=== PATIENT | female | born 1970 | race Two or more races ===

== ENCOUNTER 2020-05-14 13:16 | Inpatient (IN) | payer SELFPAY ==
[~2020-05-14] VITALS: Ht 144.8 cm; Wt 61.7 kg
[2020-05-14] MEDS ORDERED: PANTOPRAZOLE SODIUM 40 MG/VIAL IV STA (13:45)
[2020-05-14] MEDS ORDERED: ONDANSETRON HCL 4MG/2ML INJ IV STA (13:45)
[2020-05-14] MEDS ORDERED: MORPHINE SULFATE 4 MG/ML CPJ (NOT FOR IM USE) IV ONE (14:30)
[2020-05-14 14:33] LABS: BASOPHILS % 0.9 % (0.0-2.0); EOSINOPHILS % 0.8 % (0.0-5.0); HEMATOCRIT. 23.9 % (36.0-48.0); HEMOGLOBIN. 8.2 g/dL (12.0-16.0); LYMPHOCYTES % 10.1 % (20.0-50.0); MEAN CORPUSCULAR HEMOGLOBIN 31.1 pg (28.0-32.0); MEAN CORPUSCULAR VOLUME 90.5 fL (81.0-99.0); MEAN PLATELET VOLUME 8.7 fl (7.4-10.4); MONOCYTES % 3.1 % (2.0-8.0); NEUTROPHILS % 85.1 % (40.0-76.0); PLATELET 581 x1000/uL (130-400); RED BLOOD CELL COUNT 2.63 mill/uL (4.2-5.4); RED CELL DISTRIBUTION WIDTH 16.3 % (11.6-14.6)
[2020-05-14 14:35] LABS: CHLORIDE 99 mEq/L (98-107)
[2020-05-14 14:38] LABS: PROTHROMBIN TIME 10.5 sec (9.6-11.0)
[2020-05-14 15:03] LABS: HCG SCREEN NEGATIVE
[2020-05-14] MEDS ORDERED: AZITHROMYCIN 500 MG in DEXT 5% WATER 250 ML IV ONE (16:30)
[2020-05-14] MEDS ORDERED: CEFTRIAXONE 1 G PREMIX 50 ML IV ONE (16:30)
[2020-05-14] MEDS ORDERED: ONDANSETRON HCL 4MG/2ML INJ IM ONE (18:30)
[2020-05-14] MEDS ORDERED: DIPHENHYDRAMINE 50MG/ML VIAL IV PRN (22:30)
[2020-05-14] MEDS ORDERED: ONDANSETRON HCL 4MG/2ML INJ IV PRN (22:30)
[2020-05-14] MEDS ORDERED: MAGNESIUM/ALUMINUM HYDROXIDE/SIMETHICONE 30ML UDC PO PRN (22:30)
[2020-05-14] MEDS ORDERED: ACETAMINOPHEN 325MG TABLET PO PRN ×2 (22:30)
[2020-05-14] MEDS ORDERED: NA PHOS,M-B/NA PHOS,DI-BA ENEMA 118ML PR PRN (22:30)
[2020-05-14 22:51] LABS: CLARITY URINE TURBID (CLEAR); COLOR URINE YELLOW (YELLOW); KETONES URINE TRACE (NEGATIVE); LEUKOCYTE ESTERASE URINE 3+ (NEGATIVE); NITRITE URINE NEGATIVE (NEGATIVE); OCCULT BLOOD URINE 2+ (NEGATIVE); PROTEIN URINE 4+ (NEGATIVE); SPECIFIC GRAVITY URINE 1.018 (1.005-1.030); UROBILINOGEN URINE 0.2 E.U./dL (0.2-1.0)
[2020-05-14] MEDS ORDERED: HYDROMORPHONE HCL/PF 2MG/ML CPJ IV PRN (23:30)
[2020-05-15] VITALS (12 sets, daily range): BP systolic 140–178; BP diastolic 58–98
[2020-05-15] MEDS ORDERED: DEXTROSE 50% WATER 50ML SYRINGE IV PRN
[2020-05-15] MEDS: CLONIDINE 0.1MG TABLET PO PRN ×3 (02:47→17:12)
[2020-05-15] MEDS: SODIUM CHLORIDE 0.9% INJ 3ML FLUSH IVF SCH ×3 (05:24→21:28)
[2020-05-15 06:53] LABS: BASOPHILS % 1.3 % (0.0-2.0); EOSINOPHILS % 2.3 % (0.0-5.0); LYMPHOCYTES % 19.7 % (20.0-50.0); MEAN CORPUSCULAR VOLUME 91.5 fL (81.0-99.0); MEAN PLATELET VOLUME 8.7 fl (7.4-10.4); MONOCYTES % 8.2 % (2.0-8.0); NEUTROPHILS % 68.5 % (40.0-76.0); PLATELET 443 x1000/uL (130-400); RED BLOOD CELL COUNT 2.17 mill/uL (4.2-5.4); RED CELL DISTRIBUTION WIDTH 15.8 % (11.6-14.6)
[2020-05-15] MEDS: BLOOD SUGAR DIAGNOSTIC STRIP TEST SCH ×4 (07:01→21:28)
[2020-05-15] MEDS: INSULIN LISPRO 100 UNITS/ML SUBCUT SCH ×4 (07:01→21:27)
[2020-05-15 07:38] LABS: HEMATOCRIT. 19.9 % (36.0-48.0); HEMOGLOBIN. 6.7 g/dL (12.0-16.0)
[2020-05-15] MEDS ORDERED: PANTOPRAZOLE SODIUM 40 MG/VIAL IV SCH (09:00)
[2020-05-15] MEDS: LISINOPRIL 10MG TABLET PO SCH ×2 (09:42→20:16)
[2020-05-15] MEDS: AMLODIPINE 5MG TABLET PO SCH ×2 (09:42→20:15)
[2020-05-15] MEDS: PANTOPRAZOLE SODIUM 40 MG/VIAL IV SCH (20:16)
[2020-05-15 21:17] LABS: FERRITIN 1015 ng/mL (10-291)
[2020-05-15 23:42] LABS: VITAMIN B12 SERUM > 2000.0 pg/mL (211-911)
[2020-05-16] VITALS (7 sets, daily range): BP systolic 155–174; BP diastolic 68–94
[2020-05-16 01:12] LABS: HEMATOCRIT 23.1 % (36.0-48.0); HEMOGLOBIN 7.9 g/dL (12.0-16.0)
[2020-05-16] MEDS: CLONIDINE 0.1MG TABLET PO PRN (04:30)
[2020-05-16 06:36] LABS: BASOPHILS % 1.1 % (0.0-2.0); EOSINOPHILS % 3.9 % (0.0-5.0); HEMATOCRIT. 23.5 % (36.0-48.0); LYMPHOCYTES % 13.6 % (20.0-50.0); MEAN CORPUSCULAR HEMOGLOBIN 30.2 pg (28.0-32.0); MEAN CORPUSCULAR VOLUME 90.3 fL (81.0-99.0); MEAN PLATELET VOLUME 8.9 fl (7.4-10.4); MONOCYTES % 5.7 % (2.0-8.0); NEUTROPHILS % 75.7 % (40.0-76.0); PLATELET 481 x1000/uL (130-400); RED CELL DISTRIBUTION WIDTH 16.5 % (11.6-14.6)
[2020-05-16 06:40] LABS: HEMOGLOBIN. 7.9 g/dL (12.0-16.0)
[2020-05-16] MEDS: SODIUM CHLORIDE 0.9% INJ 3ML FLUSH IVF SCH ×2 (06:48→13:56)
[2020-05-16 07:06] LABS: PHOSPHORUS 3.3 mg/dL (2.5-4.9)
[2020-05-16] MEDS: BLOOD SUGAR DIAGNOSTIC STRIP TEST SCH ×3 (07:30→17:30)
[2020-05-16 07:37] LABS: HEPATITIS B SURFACE ANTIGEN NEGATIVE
[2020-05-16] MEDS: INSULIN LISPRO 100 UNITS/ML SUBCUT SCH ×3 (08:00→18:52)
[2020-05-16] MEDS: LISINOPRIL 10MG TABLET PO SCH ×2 (09:36→20:48)
[2020-05-16] MEDS: AMLODIPINE 5MG TABLET PO SCH ×2 (09:36→20:51)
[2020-05-16] MEDS: PANTOPRAZOLE SODIUM 40 MG/VIAL IV SCH ×2 (10:52→20:48)
[2020-05-16] MEDS ORDERED: AZITHROMYCIN 250 MG TABLET PO SCH (13:45)
== END 2020-05-16 23:57 | disposition home or self-care (01) | DRG 720 ==
LOC: ER 14:37 → 5EST 16:32 → ENRESERV 05-15 03:09 → 5EST 05-15 05:46
PROC: 30233N1 Transfusion of Nonautologous Red Blood Cells into Peripheral Vein, Percutaneous Approach (ICD-10-PCS; principal; 2020-05-15)
PROC: 5A1D70Z Performance of Urinary Filtration, Intermittent, Less than 6 Hours Per Day (ICD-10-PCS; 2020-05-16)
DX: A41.9 Sepsis, unspecified organism (principal); D64.9 Anemia, unspecified; E11.22 Type 2 diabetes mellitus with diabetic chronic kidney disease; E46 Unspecified protein-calorie malnutrition; Z20.828 Contact with and (suspected) exposure to other viral communicable diseases; I48.91 Unspecified atrial fibrillation; R14.0 Abdominal distension (gaseous); J90 Pleural effusion, not elsewhere classified; R16.0 Hepatomegaly, not elsewhere classified; I13.2 Hypertensive heart and chronic kidney disease with heart failure and with stage 5 chronic kidney disease, or end stage renal disease; I50.43 Acute on chronic combined systolic (congestive) and diastolic (congestive) heart failure; N18.6 End stage renal disease; Z79.899 Other long term (current) drug therapy; Z82.49 Family history of ischemic heart disease and other diseases of the circulatory system; Z99.2 Dependence on renal dialysis; Z68.29 Body mass index [BMI] 29.0-29.9, adult
CPT/HCPCS: 36415; 71045; 74176; 80048; 80053; 81003; 82607; 82728; 82962; 83036; 83540; 83550; 83605; 84100; 84703; 85014; 85018; 85025; 86803; 86850; 86900; 86920; 87077; 87186; 87340; 87426; 93005; 99285; C9113; J0456; J0696; J1815; J2270; J2405; J7060; P9021

== ENCOUNTER 2020-05-18 16:56 | Emergency (ER) | payer SELFPAY ==
[~2020-05-18] VITALS: Ht 170.2 cm; Wt 54.0 kg
[2020-05-18 17:02] VITALS: BP 197/91
[2020-05-19 00:11] LABS: BASOPHILS % 0.7 % (0.0-2.0); EOSINOPHILS % 4.1 % (0.0-5.0); HEMATOCRIT. 26.4 % (36.0-48.0); HEMOGLOBIN. 8.8 g/dL (12.0-16.0); LYMPHOCYTES % 16.9 % (20.0-50.0); MEAN CORPUSCULAR HEMOGLOBIN 30.5 pg (28.0-32.0); MEAN CORPUSCULAR VOLUME 91.1 fL (81.0-99.0); MEAN PLATELET VOLUME 8.5 fl (7.4-10.4); NEUTROPHILS % 72.3 % (40.0-76.0); PLATELET 479 x1000/uL (130-400); RED CELL DISTRIBUTION WIDTH 16.5 % (11.6-14.6)
== END 2020-05-19 02:22 | disposition home or self-care (01) ==
LOC: ER 16:56
DX: D64.9 Anemia, unspecified (principal); I12.0 Hypertensive chronic kidney disease with stage 5 chronic kidney disease or end stage renal disease; E11.22 Type 2 diabetes mellitus with diabetic chronic kidney disease; I48.20 Chronic atrial fibrillation, unspecified; Z79.01 Long term (current) use of anticoagulants; Z99.2 Dependence on renal dialysis; Z79.4 Long term (current) use of insulin
CPT/HCPCS: 36415; 80048; 85025; 86850; 86900; 99283

== ENCOUNTER 2020-06-21 04:01 | Inpatient (IN) | payer MEDICAID ==
[~2020-06-21] VITALS: Ht 167.6 cm; Wt 57.6 kg
[2020-06-21] MEDS ORDERED: ONDANSETRON HCL 4MG/2ML INJ IV STA (04:24)
[2020-06-21 05:05] LABS: EOSINOPHILS % 2.1 % (0.0-5.0); HEMATOCRIT. 33.4 % (36.0-48.0); LYMPHOCYTES % 12.4 % (20.0-50.0); MEAN CORPUSCULAR HEMOGLOBIN 31.5 pg (28.0-32.0); MEAN CORPUSCULAR VOLUME 95.6 fL (81.0-99.0); MEAN PLATELET VOLUME 8.6 fl (7.4-10.4); MONOCYTES % 4.7 % (2.0-8.0); NEUTROPHILS % 79.8 % (40.0-76.0); PLATELET 475 x1000/uL (130-400); RED BLOOD CELL COUNT 3.49 mill/uL (4.2-5.4)
[2020-06-21 05:10] LABS: CHLORIDE 92 mEq/L (98-107)
[2020-06-21] MEDS ORDERED: DEXTROSE 50% WATER 50ML SYRINGE IV ONE (05:30)
[2020-06-21] MEDS ORDERED: INSULIN REGULAR (HUMULIN R) 300UNITS/3ML VIAL IV ONE (05:30)
[2020-06-21] MEDS ORDERED: HYDRALAZINE HCL 100MG TABLET PO ONE (05:30)
[2020-06-21] MEDS ORDERED: ONDANSETRON HCL 4MG/2ML INJ IV ONE (06:15)
[2020-06-21] MEDS ORDERED: ACETAMINOPHEN WITH CODEINE 300/30MG TABLET PO ONE (06:45)
[2020-06-21] MEDS ORDERED: ACETAMINOPHEN 325MG TABLET PO PRN (07:15)
[2020-06-21] MEDS ORDERED: MAGNESIUM/ALUMINUM HYDROXIDE/SIMETHICONE 30ML UDC PO PRN (07:15)
[2020-06-21] MEDS ORDERED: ZOLPIDEM TARTRATE 5MG TABLET PO PRN (07:15)
[2020-06-21] MEDS ORDERED: DIPHENHYDRAMINE 50MG/ML VIAL IV PRN (07:15)
[2020-06-21] MEDS ORDERED: GUAIFENESIN 200MG/10ML SUGAR FREE UDC PO PRN (07:15)
[2020-06-21] MEDS ORDERED: NITROGLYCERIN 0.4MG TABLET SL SL PRN (07:15)
[2020-06-21] MEDS ORDERED: IPRATROPIUM/ALBUTEROL 0.5-3(2.5)MG/3ML NEB NEB PRN (07:15)
[2020-06-21] MEDS ORDERED: DOCUSATE SODIUM 100MG CAPSULE PO PRN (07:15)
[2020-06-21] MEDS ORDERED: DEXTROSE 50% WATER 50ML SYRINGE IV PRN (07:15)
[2020-06-21] MEDS ORDERED: CLONIDINE 0.1MG TABLET PO PRN (07:15)
[2020-06-21] MEDS: NITROGLYCERIN OINT 1GM/INCH UDPKT TD SCH ×3 (08:50→21:09)
[2020-06-21] MEDS: INSULIN LISPRO 100 UNITS/ML SUBCUT SCH ×4 (09:00→21:00)
[2020-06-21] MEDS: HYDRALAZINE HCL 50MG TABLET PO SCH ×3 (09:00→22:00)
[2020-06-21 09:03] LABS: FOLIC ACID (FOLATE) SERUM >20 ng/mL ng/mL (>5.38)
[2020-06-21 09:15] LABS: VITAMIN B12 SERUM >2000 pg/mL pg/mL (211-911)
[2020-06-21] MEDS: FAMOTIDINE 20MG TABLET PO SCH ×2 (09:59→21:10)
[2020-06-21] MEDS: ZINC SULFATE 220 MG ( 50 ) CAPSULE PO SCH (09:59)
[2020-06-21] MEDS: AMLODIPINE 10MG TABLET PO SCH (09:59)
[2020-06-21] MEDS: ASCORBIC ACID 500 MG TABLET PO SCH ×2 (10:00→21:07)
[2020-06-21] MEDS: ENOXAPARIN 30MG/0.3ML SYR SUBCUT SCH (10:00)
[2020-06-21] MEDS: SEVELAMER CARBONATE 800 MG TABLET PO SCH ×4 (10:00→18:12)
[2020-06-21] MEDS: ASPIRIN 325MG EC TABLET PO SCH (10:01)
[2020-06-21] MEDS: METOPROLOL TARTRATE 25MG TABLET PO SCH ×2 (10:01→21:00)
[2020-06-21] MEDS: BLOOD SUGAR DIAGNOSTIC STRIP TEST SCH ×4 (10:09→21:09)
[2020-06-21] MEDS: ACETAMINOPHEN 325MG TABLET PO PRN (11:37)
[2020-06-21] MEDS: ONDANSETRON HCL 4MG/2ML INJ IV PRN ×2 (13:14→21:07)
[2020-06-21] MEDS ORDERED: CEFTRIAXONE 1 G PREMIX 50 ML IV SCH (13:30)
[2020-06-21] MEDS ORDERED: AZITHROMYCIN 500 MG in DEXT 5% WATER 250 ML IV SCH (14:00)
[2020-06-21] MEDS: METOCLOPRAMIDE 10MG/10 ML UDC PO SCH (15:03)
[2020-06-21 17:40] VITALS: BP 113/70
[2020-06-21 17:52] LABS: CREATINE KINASE MB FRACTION 3.3 ng/mL (0.5-3.6)
[2020-06-21 20:00] VITALS: BP_SYST 129; BP_SYST 202; BP_DIAS 72
[2020-06-21 23:59] LABS: CREATINE KINASE MB FRACTION 2.6 ng/mL (0.5-3.6)
[2020-06-22] VITALS (7 sets, daily range): BP systolic 114–156; BP diastolic 62–82
[2020-06-22] MEDS: HYDRALAZINE HCL 50MG TABLET PO SCH ×3 (06:00→21:27)
[2020-06-22] MEDS: METOCLOPRAMIDE 10MG/10 ML UDC PO SCH ×3 (06:01→18:41)
[2020-06-22] MEDS: NITROGLYCERIN OINT 1GM/INCH UDPKT TD SCH ×3 (06:01→21:28)
[2020-06-22] MEDS: BLOOD SUGAR DIAGNOSTIC STRIP TEST SCH ×4 (06:05→21:28)
[2020-06-22] MEDS: ACETAMINOPHEN 325MG TABLET PO PRN (06:29)
[2020-06-22 07:01] LABS: BASOPHILS % 1.1 % (0.0-2.0); HEMOGLOBIN. 9.7 g/dL (12.0-16.0); LYMPHOCYTES % 21.8 % (20.0-50.0); MEAN PLATELET VOLUME 8.7 fl (7.4-10.4); MONOCYTES % 7.1 % (2.0-8.0); PLATELET 467 x1000/uL (130-400); RED BLOOD CELL COUNT 3.02 mill/uL (4.2-5.4); RED CELL DISTRIBUTION WIDTH 16.4 % (11.6-14.6)
[2020-06-22 07:34] LABS: CHLORIDE 97 mEq/L (98-107)
[2020-06-22] MEDS: INSULIN LISPRO 100 UNITS/ML SUBCUT SCH ×4 (07:40→21:00)
[2020-06-22 07:41] LABS: PHOSPHORUS 4.5 mg/dL (2.5-4.9)
[2020-06-22] MEDS: FAMOTIDINE 20MG TABLET PO SCH ×2 (09:43→21:27)
[2020-06-22] MEDS: ASPIRIN 325MG EC TABLET PO SCH (09:43)
[2020-06-22] MEDS: ZINC SULFATE 220 MG ( 50 ) CAPSULE PO SCH (09:43)
[2020-06-22] MEDS: AMLODIPINE 10MG TABLET PO SCH (09:43)
[2020-06-22] MEDS: SEVELAMER CARBONATE 800 MG TABLET PO SCH ×3 (09:43→18:41)
[2020-06-22] MEDS: METOPROLOL TARTRATE 25MG TABLET PO SCH ×2 (09:43→21:27)
[2020-06-22] MEDS: ENOXAPARIN 30MG/0.3ML SYR SUBCUT SCH (09:44)
[2020-06-22] MEDS: ASCORBIC ACID 500 MG TABLET PO SCH ×2 (09:46→21:27)
[2020-06-22] MEDS: CEFTRIAXONE 1,000 MG in DEXTROSE 5% WATER 50 ML IV SCH (12:12)
[2020-06-22] MEDS ORDERED: AZITHROMYCIN 500 MG in DEXT 5% WATER 250 ML IV SCH (14:00)
[2020-06-23] VITALS: BP 100/49
[2020-06-23 04:00] VITALS: BP 128/67
[2020-06-23] MEDS: METOCLOPRAMIDE 10MG/10 ML UDC PO SCH (06:15)
[2020-06-23] MEDS: HYDRALAZINE HCL 50MG TABLET PO SCH (06:15)
[2020-06-23] MEDS: NITROGLYCERIN OINT 1GM/INCH UDPKT TD SCH (06:15)
[2020-06-23] MEDS: BLOOD SUGAR DIAGNOSTIC STRIP TEST SCH (06:16)
[2020-06-23] MEDS: INSULIN LISPRO 100 UNITS/ML SUBCUT SCH (07:50)
[2020-06-23] MEDS: ONDANSETRON HCL 4MG/2ML INJ IV PRN (08:40)
[2020-06-23] MEDS: ENOXAPARIN 30MG/0.3ML SYR SUBCUT SCH (08:40)
[2020-06-23] MEDS: CEFTRIAXONE 1,000 MG in DEXTROSE 5% WATER 50 ML IV SCH (08:40)
[2020-06-23] MEDS: METOPROLOL TARTRATE 25MG TABLET PO SCH (08:41)
[2020-06-23] MEDS: ZINC SULFATE 220 MG ( 50 ) CAPSULE PO SCH (08:41)
[2020-06-23] MEDS: SEVELAMER CARBONATE 800 MG TABLET PO SCH (08:41)
[2020-06-23] MEDS: FAMOTIDINE 20MG TABLET PO SCH (08:41)
[2020-06-23 08:42] VITALS: BP 154/73
[2020-06-23] MEDS: AMLODIPINE 10MG TABLET PO SCH (08:42)
[2020-06-23] MEDS: ACETAMINOPHEN 325MG TABLET PO PRN (08:42)
[2020-06-23] MEDS: ASCORBIC ACID 500 MG TABLET PO SCH (08:42)
[2020-06-23] MEDS: ASPIRIN 325MG EC TABLET PO SCH (08:50)
[2020-06-23 11:00] VITALS: BP 140/80
== END 2020-06-23 12:47 | disposition home or self-care (01) | DRG 194 ==
LOC: ER 04:01 → CANBEDREQ 05:35 → 8WST 05:44 → ENRESERV 16:30 → 6WST 06-22 14:41
PROVIDERS: ADMIT Internal Medicine; ATTEND Internal Medicine
PROC: 5A1D70Z Performance of Urinary Filtration, Intermittent, Less than 6 Hours Per Day (ICD-10-PCS; principal; 2020-06-22)
DX: I13.2 Hypertensive heart and chronic kidney disease with heart failure and with stage 5 chronic kidney disease, or end stage renal disease (principal); E11.43 Type 2 diabetes mellitus with diabetic autonomic (poly)neuropathy; J96.00 Acute respiratory failure, unspecified whether with hypoxia or hypercapnia; I50.33 Acute on chronic diastolic (congestive) heart failure; N18.6 End stage renal disease; E11.22 Type 2 diabetes mellitus with diabetic chronic kidney disease; D63.8 Anemia in other chronic diseases classified elsewhere; E87.5 Hyperkalemia; K31.84 Gastroparesis; Z20.822 Contact with and (suspected) exposure to COVID-19; D72.829 Elevated white blood cell count, unspecified; I48.0 Paroxysmal atrial fibrillation; E87.1 Hypo-osmolality and hyponatremia; E43 Unspecified severe protein-calorie malnutrition; Z76.5 Malingerer [conscious simulation]; Z82.49 Family history of ischemic heart disease and other diseases of the circulatory system; Z99.2 Dependence on renal dialysis; Z68.20 Body mass index [BMI] 20.0-20.9, adult
CPT/HCPCS: 36415; 71045; 80053; 80061; 82550; 82553; 82607; 82728; 82746; 82962; 83036; 83540; 83550; 83615; 83735; 83880; 84100; 84145; 84484; 85025; 85379; 93005; 93306; 93970; 96374; 99291; C1893; J0456; J0696; J1650; J1815; J2405; J7040; J7060; J8597; U0003

== ENCOUNTER 2020-06-27 20:11 | Emergency (ER) | payer MEDICAID ==
[~2020-06-27] VITALS: Ht 157.5 cm; Wt 55.0 kg
[2020-06-27] MEDS ORDERED: FAMOTIDINE 20MG/2ML VIAL IV ONE (21:45)
[2020-06-27] MEDS ORDERED: ONDANSETRON HCL 4MG/2ML INJ IV ONE (21:45)
[2020-06-27] MEDS ORDERED: MORPHINE SULFATE 4 MG/ML CPJ (NOT FOR IM USE) IV ONE (21:45)
[2020-06-27 21:55] LABS: BASOPHILS % 1.1 % (0.0-2.0); EOSINOPHILS % 0.6 % (0.0-5.0); LYMPHOCYTES % 9.8 % (20.0-50.0); MEAN CORPUSCULAR HEMOGLOBIN 31.6 pg (28.0-32.0); MEAN CORPUSCULAR VOLUME 94.7 fL (81.0-99.0); MEAN PLATELET VOLUME 8.8 fl (7.4-10.4); MONOCYTES % 4.8 % (2.0-8.0); NEUTROPHILS % 83.7 % (40.0-76.0); PLATELET 450 x1000/uL (130-400); RED BLOOD CELL COUNT 2.85 mill/uL (4.2-5.4); RED CELL DISTRIBUTION WIDTH 15.4 % (11.6-14.6)
[2020-06-27 23:58] VITALS: BP 158/80
[2020-07-02] MEDS ORDERED: AMLO10TA80 PO (12:51)
[2020-07-02] MEDS ORDERED: HYDR-4135 PO (12:51)
[2020-07-21] MEDS ORDERED: LOSA50TA3 PO (12:25)
[2020-07-21] MEDS ORDERED: METO25TA6 PO (12:25)
[2020-07-21] MEDS ORDERED: TOPUD PO (12:25)
== END 2020-06-27 23:59 | disposition home or self-care (01) ==
LOC: ER 20:11
DX: R10.13 Epigastric pain (principal); R11.2 Nausea with vomiting, unspecified; I12.0 Hypertensive chronic kidney disease with stage 5 chronic kidney disease or end stage renal disease; E11.22 Type 2 diabetes mellitus with diabetic chronic kidney disease; N18.6 End stage renal disease; Z99.2 Dependence on renal dialysis; I48.91 Unspecified atrial fibrillation
CPT/HCPCS: 36415; 82962; 85025; 93005; 96374; 96375; 99284; J2270; J2405; J3490

== ENCOUNTER 2020-07-19 05:54 | Inpatient (IN) | payer MEDICAID, OTHER ==
[~2020-07-19] VITALS: Ht 162.6 cm; Wt 63.5 kg
[~2020-07-19 05:54] MED LIST: AMLO10TA80 PO; HYDR-4135 PO
[2020-07-19 08:59] LABS: BASOPHILS % 0.9 % (0.0-2.0); EOSINOPHILS % 1.2 % (0.0-5.0); HEMATOCRIT. 25.4 % (36.0-48.0); HEMOGLOBIN. 8.3 g/dL (12.0-16.0); LYMPHOCYTES % 11.2 % (20.0-50.0); MEAN CORPUSCULAR HEMOGLOBIN 32.2 pg (28.0-32.0); MEAN CORPUSCULAR VOLUME 98.8 fL (81.0-99.0); MEAN PLATELET VOLUME 9.5 fl (7.4-10.4); MONOCYTES % 6.1 % (2.0-8.0); NEUTROPHILS % 80.6 % (40.0-76.0); PLATELET 409 x1000/uL (130-400); RED BLOOD CELL COUNT 2.57 mill/uL (4.2-5.4); RED CELL DISTRIBUTION WIDTH 16.5 % (11.6-14.6)
[2020-07-19 09:10] LABS: CHLORIDE 97 mEq/L (98-107)
[2020-07-19] MEDS ORDERED: FUROSEMIDE 100MG/10ML VIAL IV STA (09:13)
[2020-07-19] MEDS ORDERED: CALCIUM CHLORIDE 1GM/10ML SYR IV ONE (09:15)
[2020-07-19] MEDS ORDERED: SODIUM BICARBONATE 8.4% 1 MEQ/ML 50ML SYR IV ONE (09:15)
[2020-07-19] MEDS ORDERED: INSULIN REGULAR (HUMULIN R) 300UNITS/3ML VIAL IV ONE (09:15)
[2020-07-19] MEDS ORDERED: DEXTROSE 50% WATER 50ML SYRINGE IV ONE (09:15)
[2020-07-19] MEDS ORDERED: ALBUTEROL (0.083%) 2.5MG/3ML NEB HHN ONE (09:15)
[2020-07-19] MEDS ORDERED: AMLODIPINE 5MG TABLET PO SCH (11:30)
[2020-07-19] MEDS ORDERED: LOSARTAN POTASSIUM 25 MG TABLET PO SCH (11:30)
[2020-07-19] MEDS: METOPROLOL TARTRATE 25MG TABLET PO SCH ×2 (12:17→20:24)
[2020-07-19] MEDS ORDERED: DEXTROSE 50% WATER 50ML SYRINGE IV PRN (12:30)
[2020-07-19] MEDS ORDERED: ONDANSETRON HCL 4MG/2ML INJ IV PRN (12:30)
[2020-07-19] MEDS ORDERED: TRAZODONE HCL 50MG TABLET PO PRN (12:30)
[2020-07-19] MEDS ORDERED: HYDRALAZINE 20MG/ML VIAL IV PRN (12:30)
[2020-07-19] MEDS ORDERED: CLONIDINE 0.1MG TABLET PO PRN (12:30)
[2020-07-19] MEDS ORDERED: ACETAMINOPHEN 325MG TABLET PO PRN (12:30)
[2020-07-19] MEDS ORDERED: TRAMADOL 50MG TABLET PO PRN (12:30)
[2020-07-19] MEDS ORDERED: LIDOCAINE 5% PATCH TOP SCH (13:00)
[2020-07-19] MEDS: INSULIN LISPRO 100 UNITS/ML SUBCUT SCH ×3 (13:20→20:05)
[2020-07-19 15:35] LABS: FOLIC ACID (FOLATE) SERUM 13.8 ng/mL (>5.38)
[2020-07-19 16:14] LABS: TOTAL IRON BINDING CAPACITY 167 ug/dL (250-450)
[2020-07-19] MEDS: BLOOD SUGAR DIAGNOSTIC STRIP TEST SCH ×3 (16:45→20:05)
[2020-07-19 17:27] VITALS: BP_SYST 135; BP_SYST 138; BP_DIAS 85
[2020-07-19] MEDS: SEVELAMER CARBONATE 800 MG TABLET PO SCH (18:41)
[2020-07-19 20:00] VITALS: BP 163/80
[2020-07-19] MEDS: HEPARIN 5000 UNITS/ML VIAL SUBCUT SCH (20:24)
[2020-07-20] VITALS: BP 177/84
[2020-07-20 04:00] VITALS: BP 147/69
[2020-07-20] MEDS: BLOOD SUGAR DIAGNOSTIC STRIP TEST SCH ×4 (06:06→21:42)
[2020-07-20] MEDS: AMLODIPINE 10MG TABLET PO SCH (06:15)
[2020-07-20] MEDS: INSULIN LISPRO 100 UNITS/ML SUBCUT SCH ×4 (06:15→21:53)
[2020-07-20 07:42] LABS: BASOPHILS % 1.2 % (0.0-2.0); EOSINOPHILS % 2.7 % (0.0-5.0); HEMATOCRIT. 21.8 % (36.0-48.0); HEMOGLOBIN. 7.1 g/dL (12.0-16.0); LYMPHOCYTES % 20.6 % (20.0-50.0); MEAN CORPUSCULAR HEMOGLOBIN 31.6 pg (28.0-32.0); MEAN CORPUSCULAR VOLUME 97.1 fL (81.0-99.0); MEAN PLATELET VOLUME 8.9 fl (7.4-10.4); MONOCYTES % 7.5 % (2.0-8.0); PLATELET 351 x1000/uL (130-400); RED BLOOD CELL COUNT 2.25 mill/uL (4.2-5.4); RED CELL DISTRIBUTION WIDTH 16.6 % (11.6-14.6)
[2020-07-20 07:55] LABS: CHLORIDE 101 mEq/L (98-107)
[2020-07-20 08:00] VITALS: BP 165/75
[2020-07-20] MEDS ORDERED: AMLODIPINE 5MG TABLET PO SCH (09:00)
[2020-07-20] MEDS: SEVELAMER CARBONATE 800 MG TABLET PO SCH ×3 (09:22→17:06)
[2020-07-20] MEDS: HEPARIN 5000 UNITS/ML VIAL SUBCUT SCH ×2 (09:22→21:51)
[2020-07-20] MEDS: LOSARTAN POTASSIUM 50 MG TABLET PO SCH (09:23)
[2020-07-20] MEDS: METOPROLOL TARTRATE 25MG TABLET PO SCH ×2 (09:25→21:51)
[2020-07-20 12:00] VITALS: BP 114/63
[2020-07-20 16:00] VITALS: BP 159/82
[2020-07-20] MEDS: LIDOCAINE 5% PATCH TOP SCH (17:00)
[2020-07-20 20:00] VITALS: BP 141/77
[2020-07-20] MEDS ORDERED: EPOETIN ALFA-EPBX 10,000 UNIT/ML VIAL SUBCUT NR (21:00)
[2020-07-21] VITALS: BP 154/85
[2020-07-21 04:00] VITALS: BP 160/97
[2020-07-21] MEDS: AMLODIPINE 10MG TABLET PO SCH (06:11)
[2020-07-21] MEDS: SEVELAMER CARBONATE 800 MG TABLET PO SCH ×2 (06:11→11:37)
[2020-07-21] MEDS: INSULIN LISPRO 100 UNITS/ML SUBCUT SCH ×2 (07:15→11:36)
[2020-07-21 07:24] LABS: BASOPHILS % 1.2 % (0.0-2.0); EOSINOPHILS % 4.5 % (0.0-5.0); HEMATOCRIT. 22.9 % (36.0-48.0); HEMOGLOBIN. 7.5 g/dL (12.0-16.0); LYMPHOCYTES % 22.7 % (20.0-50.0); MEAN CORPUSCULAR HEMOGLOBIN 32.3 pg (28.0-32.0); MEAN PLATELET VOLUME 9.1 fl (7.4-10.4); MONOCYTES % 7.4 % (2.0-8.0); NEUTROPHILS % 64.2 % (40.0-76.0); PLATELET 360 x1000/uL (130-400); RED BLOOD CELL COUNT 2.33 mill/uL (4.2-5.4)
[2020-07-21] MEDS: BLOOD SUGAR DIAGNOSTIC STRIP TEST SCH ×2 (07:35→11:36)
[2020-07-21 08:00] VITALS: BP 171/81
[2020-07-21 08:11] LABS: CHLORIDE 98 mEq/L (98-107)
[2020-07-21] MEDS: HEPARIN 5000 UNITS/ML VIAL SUBCUT SCH (08:18)
[2020-07-21] MEDS: LIDOCAINE 5% PATCH TOP SCH (08:18)
[2020-07-21] MEDS: LOSARTAN POTASSIUM 50 MG TABLET PO SCH (08:18)
[2020-07-21] MEDS: METOPROLOL TARTRATE 25MG TABLET PO SCH (08:19)
[2020-07-21 12:00] VITALS: BP 149/69
[2020-07-21] MEDS ORDERED: TOPUD PO (12:25)
[2020-07-21] MEDS ORDERED: LOSA50TA3 PO (12:25)
[2020-07-21] MEDS ORDERED: METO25TA6 PO (12:25)
[2020-07-21 13:18] VITALS: BP 149/69
== END 2020-07-21 16:04 | disposition home or self-care (01) | DRG 425 ==
LOC: ER 05:54 → 5WST 09:46 → ENRESERV 15:21
PROVIDERS: ADMIT Internal Medicine; ATTEND Internal Medicine
PROC: 5A1D70Z Performance of Urinary Filtration, Intermittent, Less than 6 Hours Per Day (ICD-10-PCS; principal; 2020-07-19)
PROC: 5A1D70Z Performance of Urinary Filtration, Intermittent, Less than 6 Hours Per Day (ICD-10-PCS; 2020-07-20)
DX: E87.5 Hyperkalemia (principal); I13.2 Hypertensive heart and chronic kidney disease with heart failure and with stage 5 chronic kidney disease, or end stage renal disease; N18.6 End stage renal disease; E11.22 Type 2 diabetes mellitus with diabetic chronic kidney disease; D63.1 Anemia in chronic kidney disease; I50.9 Heart failure, unspecified; E87.1 Hypo-osmolality and hyponatremia; Z79.899 Other long term (current) drug therapy; I16.0 Hypertensive urgency; I27.21 Secondary pulmonary arterial hypertension; Z99.2 Dependence on renal dialysis; J06.9 Acute upper respiratory infection, unspecified; G89.29 Other chronic pain; J90 Pleural effusion, not elsewhere classified
CPT/HCPCS: 36415; 71045; 80053; 80061; 82607; 82728; 82746; 82962; 83036; 83540; 83550; 83735; 83880; 84484; 85025; 85044; 93005; 94644; 96374; 97162; 97166; 99291; C1893; J0360; J0885; J1644; J1815; J1940; J3490

== ENCOUNTER 2020-08-16 09:47 | Inpatient (IN) | payer MEDICAID ==
[~2020-08-16] VITALS: Ht 157.5 cm; Wt 54.4 kg
[~2020-08-16 09:47] MED LIST changes: +LOSA50TA3 PO; +METO25TA6 PO; +TOPUD PO
[2020-08-16 10:46] LABS: BASOPHILS % 0.8 % (0.0-2.0); EOSINOPHILS % 0.9 % (0.0-5.0); HEMATOCRIT. 31.3 % (36.0-48.0); LYMPHOCYTES % 10.6 % (20.0-50.0); MEAN CORPUSCULAR HEMOGLOBIN 31.5 pg (28.0-32.0); MEAN CORPUSCULAR VOLUME 98.4 fL (81.0-99.0); MEAN PLATELET VOLUME 8.5 fl (7.4-10.4); MONOCYTES % 4.6 % (2.0-8.0); NEUTROPHILS % 83.1 % (40.0-76.0); PLATELET 432 x1000/uL (130-400); RED BLOOD CELL COUNT 3.18 mill/uL (4.2-5.4); RED CELL DISTRIBUTION WIDTH 16.4 % (11.6-14.6)
[2020-08-16 10:56] LABS: CHLORIDE 100 mEq/L (98-107)
[2020-08-16] MEDS ORDERED: FUROSEMIDE 100MG/10ML VIAL IV STA (11:58)
[2020-08-16] MEDS ORDERED: INSULIN REGULAR (HUMULIN R) 300UNITS/3ML VIAL IV ONE (12:00)
[2020-08-16] MEDS ORDERED: SODIUM BICARBONATE 8.4% 1 MEQ/ML 50ML SYR IV ONE (12:00)
[2020-08-16] MEDS ORDERED: CALCIUM CHLORIDE 1GM/10ML SYR IV ONE (12:00)
[2020-08-16] MEDS ORDERED: DEXTROSE 50% WATER 50ML SYRINGE IV ONE (12:00)
[2020-08-16] MEDS ORDERED: ALBUTEROL (0.083%) 2.5MG/3ML NEB HHN ONE (12:00)
[2020-08-16] MEDS ORDERED: IPRATROPIUM/ALBUTEROL 0.5-3(2.5)MG/3ML NEB HHN PRN (14:30)
[2020-08-16 17:25] VITALS: BP 181/97
[2020-08-16] MEDS ORDERED: CLONIDINE 0.2MG TABLET PO PRN ×2 (17:45→18:30)
[2020-08-16] MEDS: METOPROLOL TARTRATE 50MG TABLET PO SCH (18:09)
[2020-08-16] MEDS: HYDRALAZINE HCL 50MG TABLET PO SCH ×2 (18:10→21:51)
[2020-08-16] MEDS ORDERED: HYDROCODONE/ACETAMINOPHEN 5/325MG TABLET PO PRN (18:30)
[2020-08-16 20:00] VITALS: BP 138/82
[2020-08-16] MEDS: IPRATROPIUM/ALBUTEROL 0.5-3(2.5)MG/3ML NEB HHN SCH (21:18)
[2020-08-17] VITALS: BP 164/87
[2020-08-17] MEDS: IPRATROPIUM/ALBUTEROL 0.5-3(2.5)MG/3ML NEB HHN SCH ×3 (01:44→16:14)
[2020-08-17 04:00] VITALS: BP 152/73
[2020-08-17] MEDS: HYDRALAZINE HCL 50MG TABLET PO SCH ×2 (05:49→14:30)
[2020-08-17 08:00] VITALS: BP 152/84
[2020-08-17] MEDS: METOPROLOL TARTRATE 50MG TABLET PO SCH ×2 (08:59→11:42)
[2020-08-17] MEDS: AMLODIPINE 5MG TABLET PO SCH ×2 (08:59→11:41)
[2020-08-17] MEDS ORDERED: HEPARIN SODIUM 1,000 UNIT/1ML VIAL IV SCH (10:30)
[2020-08-17 12:00] VITALS: BP 186/90
[2020-08-17] MEDS ORDERED: FENTANYL CITRATE/PF 50MCG/ML 5ML VIAL ONE (14:27)
[2020-08-17] MEDS ORDERED: IODIXANOL 320MG/ML 200ML BOTTLE ONE (14:27)
[2020-08-17] MEDS ORDERED: MIDAZOLAM HCL 5 MG/5 ML VIAL ONE (14:27)
[2020-08-17 16:00] VITALS: BP 153/84
== END 2020-08-17 20:10 | disposition left against medical advice (07) | DRG 133 ==
LOC: ER 09:47 → 5WST 12:01 → ENRESERV 13:25
PROVIDERS: ADMIT Internal Medicine; ATTEND Internal Medicine
PROC: 5A1D70Z Performance of Urinary Filtration, Intermittent, Less than 6 Hours Per Day (ICD-10-PCS; principal; 2020-08-17)
DX: J96.01 Acute respiratory failure with hypoxia (principal); I13.2 Hypertensive heart and chronic kidney disease with heart failure and with stage 5 chronic kidney disease, or end stage renal disease; E87.5 Hyperkalemia; D64.9 Anemia, unspecified; E11.22 Type 2 diabetes mellitus with diabetic chronic kidney disease; I25.10 Atherosclerotic heart disease of native coronary artery without angina pectoris; N18.6 End stage renal disease; Z79.899 Other long term (current) drug therapy; J06.9 Acute upper respiratory infection, unspecified; Z82.49 Family history of ischemic heart disease and other diseases of the circulatory system; Z99.2 Dependence on renal dialysis; E87.1 Hypo-osmolality and hyponatremia; Z20.822 Contact with and (suspected) exposure to COVID-19; D15.1 Benign neoplasm of heart; Z53.29 Procedure and treatment not carried out because of patient's decision for other reasons; I50.42 Chronic combined systolic (congestive) and diastolic (congestive) heart failure
CPT/HCPCS: 36415; 71045; 80053; 82962; 83880; 84145; 84484; 85025; 87426; 93005; 94640; 94644; 99291; J1644; J1815; J1940; J2250; J3010; J3490; Q9967